=== PATIENT | female | born 1990 | race Caucasian/White ===

== ENCOUNTER → 2016-11-20 | Outpatient (CLI) | payer OTHER ==
[~2016-11-20] VITALS: Ht 172.7 cm; Wt 73.0 kg
[~2016-11-20] MED LIST: Motrin PO; PRENATAL GUMMI1 EACH PO; Percocet 5/325,Endoc PO
[2016-11-20 08:13] VITALS: BP 148/92
== END | disposition home or self-care (01) ==
LOC: IVINF 08:00
DX: Z31.82 Encounter for Rh incompatibility status (principal); Z3A.28 28 weeks gestation of pregnancy
CPT/HCPCS: 96372; J2790